=== PATIENT | male | born 1945 ===

== ENCOUNTER 2017-03-02 07:54 | Emergency (ER) | payer MEDICARE, OTHER ==
[2017-03-02 07:54] VITALS: BMI 33.4
[2017-03-02 08:10] VITALS: BP 167/84; PULSE 86; RESP 18; TEMP 98; O2SAT 97
--- NOTE | 2017-03-02 08:15 | C.PDOC ---
History Of Present Illness Patient sent to ED by anesthesiologist, was scheduled to have prostate biopsy today and during preop evaluation was c/o chest pain. In ER, patient denies having chest pain, SOB, palpitations today. He states he is very thirsty and has a headache, has been NPO since last night. Patient denies abdominal pain, nausea/vomiting/diarrhea, fever, cough. Time Seen by Provider: 03/02/17 08:00 Chief Complaint (Nursing): Medical Clearance History Per: Patient, Family (wifre at bedside ), Other (anesthesiologist) History/Exam Limitations: no limitations Severity: None Past Medical History Reviewed: Historical Data, Nursing Documentation, Vital Signs Vital Signs: Last Vital Signs Temp 98.0 F 03/02/17 07:55 Pulse 86 03/02/17 07:55 Resp 18 03/02/17 07:55 BP 167/84 H 03/02/17 07:55 Pulse Ox 97 03/02/17 08:28 - Medical History PMH: Diabetes, HTN Family History: States: No Known Family Hx - Social History Hx Tobacco Use: No Hx Alcohol Use: No Hx Substance Use: No - Immunization History Hx Tetanus Toxoid Vaccination: No Hx Influenza Vaccination: Yes Hx Pneumococcal Vaccination: Yes Review Of Systems Except As Marked, All Systems Reviewed And Found Negative. Constitutional: Positive for: Other (thirsty ). Negative for: Fever, Chills Cardiovascular: Negative for: Chest Pain, Palpitations Respiratory: Negative for: Cough, Shortness of Breath, SOB with Excertion Gastrointestinal: Negative for: Nausea, Vomiting, Abdominal Pain, Diarrhea Genitourinary: Negative for: Dysuria Neurological: Positive for: Headache Physical Exam - Physical Exam Appears: Well, Non-toxic, No Acute Distress Skin: Normal Color, Warm, Dry, No Rash Eye(s): bilateral: Normal Inspection Oral Mucosa: Moist Cardiovascular: Rhythm Regular Respiratory: Normal Breath Sounds, No Rales, No Rhonchi, No Wheezing Gastrointestinal/Abdominal: Normal Exam, Bowel Sounds, Soft, No Tenderness Extremity: Normal ROM Extremity: Bilateral: Atraumatic, Normal Color And Temperature, Normal ROM Neurological/Psych: Oriented x3 ED Course And Treatment ECG: Interpreted By Me, Viewed By Me (NSR 85 bpm, left axis deviation, LVH, no acute ST/T wave changes) ECG Interpretation: No Acute Changes O2 Sat by Pulse Oximetry: 97 (RA) Pulse Ox Interpretation: Normal Progress Note: Discussed patient with Dr. Alcantara, they will cancel the biopsy at this point. Patient instructed to follow up with PMD Dr. Root in 1-2 days. He continues to deny any chest pain, SOB, palpitations or other symptoms other than thirst and headache. PO tylenol given. EKG ordered and reviewed - unchanged from prior. Disposition Counseled Patient/Family Regarding: Studies Performed, Diagnosis, Need For Followup - Disposition Referrals: Clarke Root MD [Staff Provider] - Puma Alcantara MD [Staff Provider] - Disposition: HOME/ ROUTINE Disposition Time: 08:45 Condition: STABLE Forms: [facility] (Czech), General Discharge Instructions Print Language: HEBREW - POA Present On Arrival: None - Clinical Impression Clinical Impression: Medical assessment
--- NOTE | 2017-03-04 10:27 | CARD ---
APPROVED REPORT EKG Measurement Heart [id number] 196P20 [id number] <Conclusion> Normal sinus rhythm Moderate voltage criteria for LVH, may be normal variant Borderline ECG
== END 2017-03-02 09:03 | disposition home or self-care (01) ==
LOC: C.ER 07:54
DX: Z00.8 Encounter for other general examination (principal)

== ENCOUNTER 2017-07-19 15:02 | Emergency (ER) | payer MEDICARE, OTHER ==
[2017-07-19 15:02] VITALS: BMI 33.4
[2017-07-19 15:32] VITALS: O2SAT 96
[2017-07-19] MEDS ORDERED: Sodium Chloride 0.9% 1,000 ML IV ONE (15:40)
[2017-07-19] MEDS ORDERED: Sodium Chloride 0.9% 1,000 ML ONE (15:41)
[2017-07-19 15:56] LABS: BASO # 0.1 K/uL (0.0-0.2); BASO % 0.6 % (0.0-2.0); EOS # 0.3 K/uL (0.0-0.7); EOS % 3.7 % (0.0-4.0); HEMOGLOBIN 14.5 g/dL (12.0-18.0); LYMPH # 1.3 K/uL (1.0-4.3); LYMPH % 15.6 % (20.0-40.0); MEAN CELL VOLUME 88.1 fL (80.0-94.0); MEAN CORPUSCULAR HEMOGLOBIN 29.8 pg (27.0-31.0); MEAN CORPUSCULAR HGB CONC 33.8 g/dL (33.0-37.0); MEAN PLATELET VOLUME 7.7 fL (7.2-11.7); MONO # 0.5 K/uL (0.0-0.8); MONO % 5.7 % (0.0-10.0); NEUT % 74.4 % (50.0-75.0); RBC 4.85 Mil/uL (4.40-5.90); RED CELL DISTRIBUTION WIDTH 14.1 % (11.5-14.5); WHITE BLOOD COUNT 8.1 K/uL (4.8-10.8)
--- NOTE | 2017-07-19 16:02 | C.PDOC ---
History Of Present Illness 72yo male with with history of hypertension and diabetes, presents to ED with complaints of sudden onset vertiginous dizziness, described as room spinning sensation. Patient reports associated nausea but denies any headache, tinnitus, or visual changes. Patient's present at bedside and states he has never had such symptoms before. Patient denies any chest pain, palpitations, and offers no other medical complaints. Additional history obtained. Patient now claims he had a fall 4 days ago. He had no pain or obvious injury at that time. In triage, patient was noted to be diaphoretic, had an accucheck done which indicated blood sugar of 152. Time Seen by Provider: 07/19/17 15:18 Chief Complaint (Nursing): Dizziness/Lightheaded History Per: Patient History/Exam Limitations: no limitations Onset/Duration Of Symptoms: Sudden Onset Past Medical History Reviewed: Historical Data, Nursing Documentation, Vital Signs Vital Signs: Last Vital Signs Temp 98.5 F 07/19/17 15:45 Pulse 73 07/19/17 17:15 Resp 18 07/19/17 17:15 BP 160/109 H 07/19/17 17:15 Pulse Ox 96 07/19/17 17:18 - Medical History PMH: Diabetes, HTN Surgical History: No Surg Hx Family History: States: No Known Family Hx - Social History Hx Tobacco Use: No Hx Alcohol Use: No Hx Substance Use: No - Immunization History Hx Tetanus Toxoid Vaccination: No Hx Influenza Vaccination: No Hx Pneumococcal Vaccination: No Review Of Systems Except As Marked, All Systems Reviewed And Found Negative. Eyes: Negative for: Vision Change Cardiovascular: Negative for: Chest Pain, Palpitations Gastrointestinal: Positive for: Nausea Neurological: Positive for: Dizziness. Negative for: Headache Physical Exam - Physical Exam Appears: Non-toxic, No Acute Distress Skin: Warm, Diaphoretic, Pale Head: Atraumatic, Normacephalic Eye(s): bilateral: Normal Inspection, PERRL, EOMI Neck: Normal ROM, Supple Chest: Symmetrical Cardiovascular: Rhythm Regular Respiratory: Normal Breath Sounds, No Wheezing Gastrointestinal/Abdominal: Normal Exam, Soft, No Tenderness Back: Normal Inspection Extremity: Normal ROM, No Deformity, No Swelling Neurological/Psych: Oriented x3, Normal Speech, Normal Cognition, Normal Motor, Normal Sensation ED Course And Treatment - Laboratory Results Result Diagrams: 07/19/17 15:51 07/19/17 15:51 Lab Interpretation: Normal ECG: Interpreted By Me, Viewed By Me ECG Rhythm: Sinus Rhythm, PVC ECG Interpretation: No Acute Changes Rate From EC O2 Sat by Pulse Oximetry: 96 (RA) Pulse Ox Interpretation: Normal - Radiology CXR: Interpreted by Me CXR Interpretation: Yes: No Acute Disease (unchanged from prior CXR) - CT Scan/US CT Head Other Rad Studies (CT/US): Read By Radiologist, Radiology Report Reviewed CT/US Interpretation: Accession No. : [id number]. Patient Name / ID : TAL STALEY / [id number]. Exam Date : 07/19/2017 16:40:42 ( Approved ) . Study Comment : Sex / Age : M / 72Y. Creator : Julia Costa. Dictator : Steven Perry MD. C Architect : Pipe Organ Installer : Steven Perry MD. Approver2 : Report Date : 07/19/2017 16:50:39. My Comment : . PROCEDURE: CT HEAD WITHOUT CONTRAST. HISTORY: R/O Bleed. COMPARISON: None available. TECHNIQUE: Axial computed tomography images were obtained through the head/ brain without intravenous contrast. Radiation dose: Total exam DLP = 937.52 mGy-cm. This CT exam was performed using one or more of the following dose reduction techniques: Automated exposure control, adjustment of the mA and/or kV according to patient size, and/or use of iterative reconstruction technique. FINDINGS: HEMORRHAGE: No intracranial hemorrhage. BRAIN: No mass effect or edema. Moderate diffuse atrophy. Moderate periventricular white matter lucency as well as patchy and confluent deep and subcortical white matter lucency, consistent with age related microvascular ischemic change. Old right thalamic lacunar infarct. No evidence of acute infarct. VENTRICLES: Unremarkable. No hydrocephalus. CALVARIUM: Unremarkable. PARANASAL SINUSES: Unremarkable as visualized. No significant inflammatory changes. MASTOID AIR CELLS: Unremarkable as visualized. No inflammatory changes. OTHER FINDINGS: None. IMPRESSION: No intracranial hemorrhage. Age related atrophy and chronic white matter ischemic change. Old right thalamic lacunar infarct. Reevaluation Time: 18:12 Reassessment Condition: Improved (Patient appears more comfortable in ED. He is no longer pale or diaphoretic. He is resting comfortably on the stretcher but c/ o pain in the back of his neck. He has no localized point tenderness. He reports having a fall several days ago.) Medical Decision Making Medical Decision Making: Plan: -- Labs -- EKG -- CT Head w/o contrast -- Meclizine 25mg PO -- Zofran 4mg IVP Patient placed on monitor, EKG normal, pulse nl. Disposition Counseled Patient/Family Regarding: Studies Performed, Diagnosis, Need For Followup, Rx Given - Disposition Referrals: Clarke Root MD [Staff Provider] - Disposition: HOME/ ROUTINE Disposition Time: 18:13 Condition: IMPROVED Additional Instructions: Take Tylenol as needed for pain. Prescriptions: Meclizine [Meclizine*] 25 mg PO Q6 #30 tab Instructions: Vertigo (a Type of Dizziness) Forms: [employer] (Andorran) Print Language: MOLDOVAN - Clinical Impression Clinical Impression: Vertigo, Neck pain
[2017-07-19 16:18] LABS: ALBUMIN 4.1 g/dL (3.5-5.0); ALT/SGPT 23 U/L (21-72); AST/SGOT 32 U/L (17-59); BLOOD UREA NITROGEN 16 mg/dL (9-20); CALCIUM 9.4 mg/dl (8.6-10.4); GFR AFRICAN-AMERICAN > 60; GFR NON-AFRICAN AMERICAN > 60
--- NOTE | 2017-07-19 16:59 | CT ---
PROCEDURE: CT HEAD WITHOUT CONTRAST. HISTORY: R/O Bleed COMPARISON: None available. TECHNIQUE: Axial computed tomography images were obtained through the head/brain without intravenous contrast. Radiation dose: Total exam DLP = 937.52 mGy-cm. This CT exam was performed using one or more of the following dose reduction techniques: Automated exposure control, adjustment of the mA and/or kV according to patient size, and/or use of iterative reconstruction technique. FINDINGS: HEMORRHAGE: No intracranial hemorrhage. BRAIN: No mass effect or edema. Moderate diffuse atrophy. Moderate periventricular white matter lucency as well as patchy and confluent deep and subcortical white matter lucency, consistent with age related microvascular ischemic change. Old right thalamic lacunar infarct. No evidence of acute infarct. VENTRICLES: Unremarkable. No hydrocephalus. CALVARIUM: Unremarkable. PARANASAL SINUSES: Unremarkable as visualized. No significant inflammatory changes. MASTOID AIR CELLS: Unremarkable as visualized. No inflammatory changes. OTHER FINDINGS: None. IMPRESSION: No intracranial hemorrhage. Age related atrophy and chronic white matter ischemic change. Old right thalamic lacunar infarct.
[2017-07-19 17:18] VITALS: RESP 18
--- NOTE | 2017-07-19 18:11 | RAD ---
HISTORY: short of breath COMPARISON: 02/24/2017 TECHNIQUE: Chest PA and lateral FINDINGS: LUNGS: Stable linear scar/atelectasis at right base. No infiltrate. PLEURA: No significant pleural effusion identified. No pneumothorax apparent. CARDIOVASCULAR: Normal. OSSEOUS STRUCTURES: No significant abnormalities. VISUALIZED UPPER ABDOMEN: Normal. OTHER FINDINGS: None. IMPRESSION: No active disease.
[2017-07-19 18:12] VITALS: BP 178/80; PULSE 72; TEMP 98
--- NOTE | 2017-07-20 12:54 | CARD ---
APPROVED REPORT EKG Measurement Heart [id number] CO 206P19 [id number] <Conclusion> Sinus rhythm with frequent premature ventricular complexes Minimal voltage criteria for LVH, may be normal variant Borderline ECG
== END 2017-07-19 18:34 | disposition home or self-care (01) ==
LOC: C.ER 15:02
DX: R42 Dizziness and giddiness (principal); M54.2 Cervicalgia
CPT/HCPCS: 70450; 71046; 80053; 82948; 84484; 85025; 93005; 96361; 96374; 99285; J2405; J7040